=== PATIENT | male | born 1985 ===

== ENCOUNTER → 2024-04-17 | Outpatient (REF) | payer OTHER ==
[2024-04-17 10:47] LABS: SEMEN APPEARANCE OPAQUE (OPAQUE); SEMEN VISCOSITY LIQUID (LIQUID); SEMEN VOLUME 3.3 ml (2.0-5.0); SEMEN pH 8.5 (7.0-8.0); WBC CONCENTRATION <=1 M/ml (<=1 M/ml)
== END ==
LOC: M LAB REF 10:20
DX: Z30.2 Encounter for sterilization (principal); E29.1 Testicular hypofunction